=== PATIENT | female | born 1940 | race Caucasian/White ===

== ENCOUNTER 2016-11-02 13:40 | Observation (INO) | payer OTHER ==
[~2016-11-02] VITALS: Ht 160 cm; Wt 58.7 kg
[~2016-11-02 13:40] MED LIST: ACIDOPHILUS1 EAC3 PO; APPEAREX2500 MCG PO; ARIMIDEX1 MG PO; BACLOFEN10 MG PO; BETASERON0.3 MG SQ; BIOTIN PO; CALCIUM + D 601 EACH PO; COZAAR100 MG PO; DIOVAN160 MG PO; LIDODERM 5% P1 PATCH TP; LYRICA50 MG PO; NORVASC10 MG PO; OSTEO BI-FLEX1 EAC1 PO; OSTEO BI-FLEX1 EACH PO; PROBIOTIC1 EAC1 PO; SERAX10 MG PO; Tylenol Regular Stre PO; ZOLOFT100 M1 PO
[2016-11-02 14:29] LABS: MCH 31.4 PG (29.0-34.0); MCV 95.2 FL (83-99); MEAN PLAT.VOLUME 9.1 uM^3 (9.5-12.4); PLATELET COUNT 239 K/uL (156-360); RBC DIS.WIDTH-CV 17.7 % (11.8-14.6); RBC DIS.WIDTH-SD 61.7 % (39-53); WHITE BLOOD COUNT 14.6 K/uL (4.1-10.2)
[2016-11-02 14:39] LABS: CHLORIDE 106 mEq/L (99-109); POTASSIUM 4.2 mEq/L (3.7-5.4); SODIUM 142 mEq/L (136-147)
[2016-11-02 14:40] LABS: GLUCOSE 87 mg/dL (70-99)
[2016-11-02 14:42] LABS: ANION GAP 9 MEQ/L (2-14)
[2016-11-02 14:44] LABS: GFR ESTIMATE (CALCULATED) 46 mL/min/
[2016-11-02 14:45] LABS: UREA NITROGEN (BUN) 31 mg/dL (9-23)
[2016-11-02 14:52] LABS: TROP-I INTERPRETATION NEGATIVE; TROPONIN-I 0.01 ng/mL (0.0-0.30)
[2016-11-02] MEDS ORDERED: DIFLUCAN100 MG PO (17:11)
[2016-11-02] MEDS ORDERED: COZAAR50 MG PO (17:20)
[2016-11-02] MEDS ORDERED: ZOLOFT100 MG PO (17:20)
[2016-11-02] MEDS ORDERED: BIOTIN 5000MCG PO (17:21)
[2016-11-02] MEDS ORDERED: VITAMIN D31000 UNIT PO (17:22)
[2016-11-02] MEDS ORDERED: RESTASIS 01 DROP/0.4 BOTH EYES (17:22)
[2016-11-02 19:53] LABS: TOTAL BILIRUBIN 0.6 mg/dL (0.0-1.0)
[2016-11-02 19:54] LABS: ALKALINE PHOSPHATASE 74 IU/L (3-129); SERUM ETHYL ALCOHOL < 10 mg/dL
[2016-11-02 19:57] LABS: DIRECT BILIRUBIN 0.1 mg/dL (0.0-0.3)
[2016-11-02 21:31] LABS: TROP-I INTERPRETATION NEGATIVE; TROPONIN-I 0.03 ng/mL (0.0-0.30)
[2016-11-02 21:36] VITALS: BP 141/76
[2016-11-03] VITALS: BP 141/74
[2016-11-03 03:25] LABS: TROP-I INTERPRETATION NEGATIVE; TROPONIN-I 0.03 ng/mL (0.0-0.30)
[2016-11-03 04:40] VITALS: BP 158/76
[2016-11-03 05:29] LABS: EOSINOPHIL (%) 2.5 % (0-5); EOSINOPHIL COUNT 0.2 K/uL (0-0.3); HEMATOCRIT 35.3 % (36.0-46.0); IMMATURE GRANULOCYTE (%) 1.2 % (0.0-0.7); IMMATURE GRANULOCYTE COUNT 0.1 K/uL; INSTRUMENT ABS NEUTROPHIL CT 5.1 K/uL; LYMPHOCYTE COUNT 1.1 K/uL (1.0-2.8); MCH 31.3 PG (29.0-34.0); MCHC 32.9 G/DL (30.0-36.0); MCV 95.1 FL (83-99); MONOCYTE (%) 10.5 % (3-12); MONOCYTE COUNT 0.8 K/uL (0-0.8); NEUTROPHIL (%) 70.7 % (45-76); NEUTROPHIL COUNT 5.1 K/uL (1.8-6.4); RBC DIS.WIDTH-CV 17.3 % (11.8-14.6); RBC DIS.WIDTH-SD 60.4 % (39-53); RED BLOOD COUNT 3.71 M/uL (3.80-5.20); WHITE BLOOD COUNT 7.3 K/uL (4.1-10.2)
[2016-11-03 05:41] LABS: ANION GAP 8 MEQ/L (2-14); CHLORIDE 109 MEQ/L (99-109); GFR ESTIMATE (CALCULATED) > 59 mL/min/; GLUCOSE 97 mg/dL (70-99); POTASSIUM 4.2 MEQ/L (3.7-5.4); SAMPLE HEMOLYSIS CHECK 0; SAMPLE ICTERIC CHECK 0; SAMPLE LIPEMIA CHECK 0; SODIUM 141 MEQ/L (136-147); UREA NITROGEN (BUN) 21 mg/dL (9-23)
[2016-11-03 05:46] LABS: MEAN PLAT.VOLUME 9.3 uM^3 (9.5-12.4); PLAT.SUFFICIENCY ADEQUATE
[2016-11-03 05:48] LABS: PLATELET COUNT 161 K/uL (156-360)
[2016-11-03 07:25] VITALS: BP 164/73
[2016-11-03 08:22] LABS: MCV 95.1 FL (83-99)
[2016-11-03] MEDS ORDERED: LOSARTAN POTASS25 MG PO (08:39)
== END 2016-11-03 13:43 | disposition home or self-care (01) ==
LOC: EME 13:40 → 5WEST 19:00 → EDOF 19:00 → 5WEST 21:25
PROVIDERS: Emergency Medicine; Hospitalist; Physician Assistant Medical
DX: R41.82 Altered mental status, unspecified (principal); V49.88XA Car occupant (driver) (passenger) injured in other specified transport accidents, initial encounter; I10 Essential (primary) hypertension; G35 Multiple sclerosis; I95.9 Hypotension, unspecified; R07.89 Other chest pain; Z87.891 Personal history of nicotine dependence; Z88.8 Allergy status to other drugs, medicaments and biological substances
CPT/HCPCS: 70450; 71020; 71275; 80048; 80076; 84484; 85014; 85018; 85025; 85027; 93005; 99281; 99285; G0378; G0480; J7030

== ENCOUNTER 2017-01-20 17:34 | Inpatient (IN) | payer OTHER ==
[~2017-01-20] VITALS: Ht 160 cm; Wt 55.7 kg
[~2017-01-20 17:34] MED LIST changes: +BIOTIN 5000MCG PO; +COZAAR50 MG PO; +DIFLUCAN100 MG PO; +LOSARTAN POTASS25 MG PO; +RESTASIS 01 DROP/0.4 BOTH EYES; +VITAMIN D31000 UNIT PO; +ZOLOFT100 MG PO
[2017-01-20 18:02] LABS: EOSINOPHIL (%) 2.6 % (0-5); EOSINOPHIL COUNT 0.2 K/uL (0-0.3); HEMATOCRIT 38.2 % (36.0-46.0); IMMATURE GRANULOCYTE (%) 0.3 % (0.0-0.7); INSTRUMENT ABS NEUTROPHIL CT 5.1 K/uL; MCH 30.9 PG (29.0-34.0); MCHC 33.2 G/DL (30.0-36.0); MCV 92.9 FL (83-99); MEAN PLAT.VOLUME 9.4 uM^3 (9.5-12.4); MONOCYTE (%) 9.1 % (3-12); MONOCYTE COUNT 0.6 K/uL (0-0.8); NEUTROPHIL (%) 72.9 % (45-76); NEUTROPHIL COUNT 5.1 K/uL (1.8-6.4); PLATELET COUNT 177 K/uL (156-360); RBC DIS.WIDTH-SD 55.4 % (39-53); RED BLOOD COUNT 4.11 M/uL (3.80-5.20)
[2017-01-20 18:10] LABS: CHLORIDE 109 mEq/L (99-109); POTASSIUM 4.1 mEq/L (3.7-5.4); SODIUM 141 mEq/L (136-147)
[2017-01-20 18:13] LABS: POINT-OF-CARE METER ID UU14100415
[2017-01-20 18:13] LABS: GLUCOSE 88 mg/dL (70-99)
[2017-01-20 18:14] LABS: ANION GAP 12 MEQ/L (2-14)
[2017-01-20 18:15] LABS: TOTAL BILIRUBIN 0.7 mg/dL (0.0-1.0)
[2017-01-20 18:16] LABS: ALKALINE PHOSPHATASE 85 IU/L (3-129); Estimated Average Glucose 91 mg/dL (70-123); GFR ESTIMATE (CALCULATED) > 59 mL/min/; HEMOGLOBIN A1c (GLYCOHEMOGLOB) 4.8 % HGB (Below 5.7)
[2017-01-20 18:17] LABS: UREA NITROGEN (BUN) 17 mg/dL (9-23)
[2017-01-20 18:23] LABS: TROP-I INTERPRETATION NEGATIVE; TROPONIN-I < 0.01 ng/mL (0.0-0.30)
[2017-01-20 18:47] LABS: HDL CHOLESTEROL 43 MG/DL (Desirable>=50); LDL CHOLESTEROL 116 mg/dL (Desirable<100); NON-HDL CHOLESTEROL 150 mg/dL (Desirable<160); TOTAL CHOLESTEROL 193 mg/dL (Desirable<200); TRIGLYCERIDES 171 MG/DL (Normal: <150)
[2017-01-20] MEDS ORDERED: COZAAR50 MG PO (19:02)
[2017-01-20 19:39] LABS: ADD MIUA? YES; BILIRUBIN NEGATIVE; BLOOD NEGATIVE; COLOR STRAW ((YELLOW)); GLUCOSE (STRIP) NEGATIVE; KETONES NEGATIVE; LEUKOCYTES SMALL; NITRITE NEGATIVE; PROTEIN (STRIP) NEGATIVE; SPECIFIC GRAVITY 1.006 (1.000-1.030); UROBILINOGEN 0.2 MG/DL (0.2-1.0)
[2017-01-20 19:59] LABS: BACTERIA RARE /HPF; EPITHELIAL CELLS RARE /HPF; HYALINE CASTS 0-5 /LPF; MUCUS TRACE /LPF; RED BLOOD CELLS NONE SEEN /HPF (0-5); UCUL ADDED? NO; WHITE BLOOD CELLS 0-5 /HPF (0-5)
[2017-01-20 23:45] VITALS: BP 188/83
[2017-01-21 03:39] VITALS: BP 171/86
[2017-01-21 08:19] VITALS: BP 197/101
[2017-01-21 11:24] VITALS: BP 169/99
[2017-01-21 15:36] VITALS: BP 146/81
[2017-01-21 20:02] VITALS: BP 142/71
[2017-01-22 03:49] VITALS: BP 135/83
[2017-01-22 07:55] VITALS: BP 152/83
[2017-01-22 11:15] VITALS: BP 142/83
[2017-01-22] MEDS ORDERED: LOPRESSOR50 MG PO (11:26)
[2017-01-22] MEDS ORDERED: ATORVASTATIN CA40 MG PO (11:26)
[2017-01-22] MEDS ORDERED: AMLODIPINE BESYL5 MG PO (11:26)
[2017-01-22] MEDS ORDERED: ASPIR-LOW81 MG PO (11:27)
== END 2017-01-22 15:05 | disposition home or self-care (01) | DRG 66 ==
LOC: EME 17:34 → EDOF 20:59 → 5SOUTH 20:59 → ENRESERV 21:00 → 5SOUTH 22:33
PROVIDERS: Emergency Medicine
DX: I63.9 Cerebral infarction, unspecified (principal); R47.1 Dysarthria and anarthria; R29.810 Facial weakness; G35 Multiple sclerosis; I10 Essential (primary) hypertension; I25.10 Atherosclerotic heart disease of native coronary artery without angina pectoris; F32.9 Major depressive disorder, single episode, unspecified; F41.9 Anxiety disorder, unspecified; G43.909 Migraine, unspecified, not intractable, without status migrainosus; Z85.3 Personal history of malignant neoplasm of breast; Z87.891 Personal history of nicotine dependence
CPT/HCPCS: 70450; 70496; 70498; 70551; 71010; 80053; 80061; 81003; 82948; 83036; 84484; 85025; 99281; 99285